=== PATIENT | male | born 1975 | race Asian ===

== ENCOUNTER 2017-10-23 22:10 | Emergency (ER) | payer OTHER ==
[2017-10-23] MEDS ORDERED: Morphine 2 MG/ML Syringe ONE (22:15)
[2017-10-23] MEDS ORDERED: Diphtheria,Pertussis(Acell),Tetanus Vaccine 0.5 ML Syringe ONE (22:19)
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
[2017-10-23] MEDS ORDERED: fentaNYL 100 MCG/2 ML SDV ONE (22:48)
[2017-10-23 22:49] LABS: CHLORIDE,CL 104 mmol/L (98-107); SODIUM,NA 141 mmol/L (136-148)
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
[2017-10-23] MEDS ORDERED: HYDROmorphone 2 MG/ML SDV IVPUSH ONE ×2 (23:26→23:46)
[2017-10-23] MEDS ORDERED: HYDROmorphone 2 MG/ML SDV ONE (23:47)
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
== END 2017-10-23 23:57 ==
LOC: MW.ED 22:10 → EDBD 22:10 → MW.ED 23:57
DX: T25.311A Burn of third degree of right ankle, initial encounter (principal); T24.322A Burn of third degree of left knee, initial encounter; T22.30XA Burn of third degree of shoulder and upper limb, except wrist and hand, unspecified site, initial encounter; T31.11 Burns involving 10-19% of body surface with 10-19% third degree burns; Z23 Encounter for immunization
CPT/HCPCS: 36415; 71045; 80053; 85025; 85610; 90471; 90715; 93005; 96361; 96374; 96375; 99285; J1170; J2270; J3010; 99283